=== PATIENT | female | born 1950 | race Caucasian/White ===

== ENCOUNTER 2016-09-24 00:08 | Emergency (ER) | payer OTHER ==
[~2016-09-24] VITALS: Ht 160 cm; Wt 96.0 kg
[~2016-09-24 00:08] MED LIST: ALEVE220 M2 PO; ANASTROZOLE1 MG PO; ASPIRIN81 M2 PO; Amoxicillin PO; BACTRIM,SEPT1 TABLET PO; Bactrim,Septra DS 80 PO; CARISOPRODOL350 MG PO; CHLORTHALIDONE25 MG PO; CIPRO500 MG PO; CLARITIN10 M3 PO; Ceftin PO; Ecotrin PO; FAMOTIDINE20 MG PO; FLECTOR 1.3%1 PATC1 TD; FLORASTOR250 MG PO; HERCEPTIN10 MG/0.47 IV; HYDROCODON-ACE1 EAC7 PO; LEVAQUIN500 MG PO; LIDODERM 5% P1 PATCH TD; LISINOPRIL10 MG PO; LOPRESSOR25 MG PO; LORAZEPAM0.5 MG PO; LYRICA; LYRICA75 MG PO; Levaquin PO; Lopressor PO; Motrin PO; NAPROSYN500 MG PO; NORCO 5/3251 TABLET PO; NYQUIL D COLD295 ML PO; OXYCODONE HCL5 MG PO; PREDNISONE20 MG PO; Protonix PO; QBRELIS1 MG/1 ML PO; RISPERDAL; ROBITUSSIN AC,T10 ML PO; SOMA350 MG PO; SPIRONOLACTONE25 MG PO; SUDAFED 12-HOU120 MG PO; Soma PO; TESSALON PERLE100 MG PO; TRAMADOL HCL50 MG PO; Tylenol Regular Stre PO; ULTRAM50 MG PO; VANCOMYCIN1 GM/150 M IV; VICODIN 5-3001 EACH PO; VICODIN,LORT1 TABLET PO; VIGAMOX 0.60 DROP/3 BOTH EYES; ZESTRIL5 MG PO; ZITHROMAX250 MG PO; oxyCODONE PO
[2016-09-24] MEDS ORDERED: SKELAXIN800 MG PO (01:32)
[2016-09-24] MEDS ORDERED: NORCO 5/3251 TABLET PO (01:32)
[2016-09-24 01:50] VITALS: BP 100/60
== END 2016-09-24 01:53 | disposition home or self-care (01) ==
LOC: EME 00:08
DX: M54.41 Lumbago with sciatica, right side (principal); W01.0XXA Fall on same level from slipping, tripping and stumbling without subsequent striking against object, initial encounter; Y92.512 Supermarket, store or market as the place of occurrence of the external cause; I10 Essential (primary) hypertension; Z85.3 Personal history of malignant neoplasm of breast; Z90.710 Acquired absence of both cervix and uterus; Z79.82 Long term (current) use of aspirin
CPT/HCPCS: 99281; 99284

== ENCOUNTER 2017-10-07 19:51 | Emergency (ER) | payer OTHER ==
[~2017-10-07] VITALS: Ht 160 cm; Wt 95.7 kg
[~2017-10-07 19:51] MED LIST changes: +SKELAXIN800 MG PO
[2017-10-07 20:59] LABS: HEMATOCRIT 36.3 % (36.0-46.0); HEMOGLOBIN 12.3 G/DL (11.9-15.5); MCH 29.8 PG (29.0-34.0); MCHC 33.9 G/DL (30.0-36.0); MCV 87.9 FL (83-99); PLATELET COUNT 234 K/uL (156-360); RBC DIS.WIDTH-CV 12.7 % (11.8-14.6); RED BLOOD COUNT 4.13 M/uL (3.80-5.20); WHITE BLOOD COUNT 10.9 K/uL (4.1-10.2)
[2017-10-07 21:08] LABS: APPEARANCE TURBID ((CLEAR)); BILIRUBIN NEGATIVE; BLOOD NEGATIVE; COLOR AMBER ((YELLOW)); GLUCOSE (STRIP) NEGATIVE; KETONES NEGATIVE; LEUKOCYTES MODERATE; NITRITE NEGATIVE; PROTEIN (STRIP) 30; SPECIFIC GRAVITY 1.028 (1.000-1.030)
[2017-10-07 21:10] LABS: ALBUMIN 4.2 g/dL (3.2-4.8)
[2017-10-07 21:11] LABS: CHLORIDE 105 mEq/L (99-109); POTASSIUM 3.8 mEq/L (3.7-5.4); SODIUM 141 mEq/L (136-147)
[2017-10-07 21:13] LABS: GLUCOSE 115 mg/dL (70-99)
[2017-10-07 21:15] LABS: TOTAL BILIRUBIN 0.8 mg/dL (0.0-1.0)
[2017-10-07 21:16] LABS: ALKALINE PHOSPHATASE 155 IU/L (3-129)
[2017-10-07 21:17] LABS: CREATININE 1.2 mg/dL (0.6-1.3); GFR ESTIMATE (CALCULATED) 48 mL/min/
[2017-10-07 21:18] LABS: AST (GOT) 16 IU/L (2-34); UREA NITROGEN (BUN) 13 mg/dL (9-23)
[2017-10-07 21:20] LABS: ALT (GPT) 16 IU/L (3-49)
[2017-10-07 21:27] LABS: RED BLOOD CELLS NONE SEEN /HPF (0-5); WHITE BLOOD CELLS TNTC /HPF (0-5)
[2017-10-07 21:28] LABS: AMORPHOUS URATES CRYSTALS 3+; BACTERIA 3+ /HPF; UCUL ADDED? YES
[2017-10-07] MEDS ORDERED: KEFLEX500 MG PO (23:34)
[2017-10-07] MEDS ORDERED: AZO STANDARD95 MG PO (23:52)
[2017-10-07 23:57] VITALS: BP 141/71
== END 2017-10-07 23:57 | disposition home or self-care (01) ==
LOC: EME 19:51
DX: N39.0 Urinary tract infection, site not specified (principal); F32.9 Major depressive disorder, single episode, unspecified; I10 Essential (primary) hypertension; K21.9 Gastro-esophageal reflux disease without esophagitis; Z85.3 Personal history of malignant neoplasm of breast; Z90.710 Acquired absence of both cervix and uterus; Z79.82 Long term (current) use of aspirin
CPT/HCPCS: 74177; 80053; 81003; 85027; 87086; 99281; 99285; J7040